=== PATIENT | female | born 1995 | race American Indian/Alaskan Native ===

== ENCOUNTER 2018-03-03 08:59 | Emergency (ER) | payer BC ==
[2018-03-03 10:30] LABS: Basophils % (Auto) 0.2 % (0.0-1.8); Eosinophils % (Auto) 0.4 % (0.0-4.3); Hematocrit 40.1 % (30.3-42.9); Hemoglobin 13.3 gm/dl (10.1-14.3); Lymphocytes # (Auto) 1.3 K/mm3 (1.2-5.4); Lymphocytes % (Auto) 13.1 % (13.4-35.0); Mean Corpuscular HGB Conc 33 % (30-34); Mean Corpuscular Hemoglobin 30 pg (28-32); Mean Corpuscular Volume 91 fl (79-97); Monocytes # (Auto) 0.6 K/mm3 (0.0-0.8); Monocytes % (Auto) 5.7 % (0.0-7.3); Platelet Count 199 K/mm3 (140-440); Red Blood Count 4.44 M/mm3 (3.65-5.03); Red Cell Distribution Width 13.1 % (13.2-15.2)
[2018-03-03 10:49] LABS: Alanine Aminotransferase 10 units/L (7-56); Albumin 4.3 g/dL (3.9-5); BUN/Creatinine Ratio 11; Blood Urea Nitrogen 8 mg/dL (7-17); Hemolysis Index 10; Lipase 15 units/L (13-60)
[2018-03-03 11:10] LABS: Bacteria,Urine 1+ /HPF (Negative); Bilirubin,Urine NEG (Negative); Blood,Urine MOD (Negative); Color,Urine Yellow (Yellow); HCG Qualitative,Urine Negative (Negative); Mucus,Urine 3+ /HPF; Urobilinogen,Urine < 2.0 mg/dL (<2.0); WBC,Urine > 182.0 /HPF (0.0-6.0)
--- NOTE | 2018-03-03 12:42 | Emergency Department Report ---
ED Abdominal Pain HPI - General Chief Complaint: Abdominal Pain Stated Complaint: RT ABD PAIN Time Seen by Provider: 03/03/18 11:57 Source: patient Mode of arrival: Ambulatory Limitations: No Limitations - History of Present Illness Initial Comments: This is a 22 y.o. female with right pelvic pain that radiates to right flank and RLE for 5 days. Patient states she is currently not in pain. She is taking ibuprofen which relieve pain but it reoccurs. States pain originates in right pelvic and radiates to right flank down to right thigh. Denies recent injury, discharge, frequency, urgency, dysuria, nausea, and vomiting. Admits to unprotected intercourse. MD Complaint: abdominal pain (right pelvic pain), flank pain (right) -: days(s) (5) Location: RLQ Radiation: R flank Migration to: other (RLE) Severity: mild Severity scale (0 -10): 0 Quality: cramping, sharp Consistency: intermittent Improves With: medication (NSAID's) Worsens With: nothing Associated Symptoms: denies other symptoms Treatments Prior to Arrival: NSAIDs - Related Data Previous Rx's Medication Instructions Recorded Last Taken Type metroNIDAZOLE [Metronidazole] 500 mg PO BID 7 Days #14 tablet 03/03/18 Unknown Rx Allergies Allergy/AdvReac Type Severity Reaction Status Date / Time No Known Allergies Allergy Unverified 03/03/18 09:42 ED Review of Systems ROS: Stated complaint: RT ABD PAIN Other details as noted in HPI Constitutional: denies: chills, fever Respiratory: denies: cough, shortness of breath, wheezing Cardiovascular: denies: chest pain, palpitations Gastrointestinal: abdominal pain (RLQ or pelvic pain). denies: nausea, diarrhea , constipation, hematochezia Genitourinary: denies: urgency, dysuria, frequency, hematuria, discharge, abnormal menses Musculoskeletal: denies: back pain, joint swelling, arthralgia Skin: denies: rash, lesions Neurological: denies: headache, weakness, numbness, paresthesias Psychiatric: denies: anxiety, depression ED Past Medical Hx - Past Medical History Previous Medical History?: No - Surgical History Past Surgical History?: No - Social History Smoking Status: Never Smoker - Medications Home Medications: Home Medications Medication Instructions Recorded Confirmed Last Taken Type metroNIDAZOLE [Metronidazole] 500 mg PO BID 7 Days #14 tablet 03/03/18 Unknown Rx ED Physical Exam - General Limitations: No Limitations General appearance: alert, in no apparent distress - Respiratory Respiratory exam: Present: normal lung sounds bilaterally. Absent: respiratory distress, wheezes, rales, rhonchi, stridor - Cardiovascular Cardiovascular Exam: Present: regular rate, normal rhythm, normal heart sounds. Absent: systolic murmur, diastolic murmur, rubs, gallop - GI/Abdominal GI/Abdominal exam: Present: soft, normal bowel sounds. Absent: distended, tenderness, guarding, rebound, rigid, organomegaly, mass - Back Exam Back exam: Present: normal inspection, full ROM. Absent: CVA tenderness (R), CVA tenderness (L), rash noted - Neurological Exam Neurological exam: Present: alert, oriented X3, normal gait - Psychiatric Psychiatric exam: Present: normal affect, normal mood - Skin Skin exam: Present: warm, dry, intact, normal color. Absent: rash ED Course Vital Signs 03/03/18 09:42 Temperature 98.8 F Pulse Rate 109 H Respiratory 18 Rate Blood Pressure 120/79 O2 Sat by Pulse 100 Oximetry ED Medical Decision Making - Lab Data Result diagrams: 03/03/18 09:53 03/03/18 09:53 - Medical Decision Making This is a 22 y.o. female presents with right lower abdominal pain that radiates to right flank and RLE for 5 days. Patient was examined by me. Vitals stable. Obtained CBC, CMP, UA, & HCG. UA moderated blood, elevated WBC's, protein, and potassium 3.4. Discussed results with patient of possibly STD. Patient agreed to be empirically treated and f/u with PCP at [facility] ([facility] Given rocephin 250 mg IM and azithromycin 1 g po once in ER. Discharged home in stable condition. Start metronidazole 500 mg po bid x 7 days. Discussed prevention options. F/U with PCP or Health Department. Critical care attestation.: If time is entered above; I have spent that time in minutes in the direct care of this critically ill patient, excluding procedure time. ED Disposition Clinical Impression: Exposure to STD Abdominal pain Qualifiers: Abdominal location: right lower quadrant Qualified Code(s): R10.31 - Right lower quadrant pain Disposition: TO HOME OR SELFCARE Is pt being admited?: No Does the pt Need Aspirin: No Condition: Stable Instructions: Sexually Transmitted Diseases (ED), Safe Sex (ED), Abdominal Pain (ED) Additional Instructions: Avoid drinking alcohol for 24 hours. Continue safe sexual intercourse. Follow up with Primary Care Provider or health department. Prescriptions: metroNIDAZOLE [Metronidazole] 500 mg PO BID 7 Days #14 tablet Referrals: [facility] [Provider Group] - 3-5 Days [facility] [Provider Group] - 3-5 Days [facility] [Provider Group] - 3-5 Days Forms: Work/School Release Form(ED) Time of Disposition: 12:52 Print Language: LAO
[2018-03-03] MEDS ORDERED: XYLOCAINE 1% MPF 5 mL INFILTRATI ONE (12:53)
[2018-03-03] MEDS ORDERED: ZITHROMAX PO ONE (12:53)
[2018-03-03] MEDS ORDERED: ROCEPHIN IM ONE (12:53)
[2018-03-03 13:06] VITALS: BP 119/69
== END 2018-03-03 13:35 | disposition home or self-care (01) ==
LOC: ED 08:59
DX: R10.31 Right lower quadrant pain (principal); Z20.2 Contact with and (suspected) exposure to infections with a predominantly sexual mode of transmission
CPT/HCPCS: 36415; 80053; 81001; 81025; 83690; 85025; 96372; 99283; J0696

== ENCOUNTER 2019-07-23 17:55 | Emergency (ER) | payer BC ==
[2019-07-23 18:07] VITALS: BP 127/77
[2019-07-23] MEDS ORDERED: FLEXERIL PO ONE (18:09)
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
[2019-07-23] MEDS ORDERED: FLEXERIL ONE (18:11)
[2019-07-23] MEDS ORDERED: IBUPROFEN PO ONE (18:50)
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
== END 2019-07-23 19:38 | disposition home or self-care (01) ==
LOC: ED 17:55
DX: S16.1XXA Strain of muscle, fascia and tendon at neck level, initial encounter (principal); M25.511 Pain in right shoulder; Z79.899 Other long term (current) drug therapy; V89.2XXA Person injured in unspecified motor-vehicle accident, traffic, initial encounter; Y93.89 Activity, other specified; Y92.410 Unspecified street and highway as the place of occurrence of the external cause; Y99.8 Other external cause status
CPT/HCPCS: 72040